=== PATIENT | male | born 1990 | race Caucasian/White ===

== ENCOUNTER 2022-05-24 03:19 | Emergency (ER) | payer BC, SELFPAY ==
[2022-05-24] VITALS (8 sets, daily range): BP systolic 126–146; BP diastolic 76–80; PULSE 88–98; RESP 18–22; O2SAT 92–100; BMI 36.3
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
--- NOTE | 2022-05-24 03:49 | PC.NURSE ---
patient refusing all medications, states i just want warm blankets'.
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
--- NOTE | 2022-05-24 04:22 | PC.NURSE ---
while in ct with patient, patient now opening eyes to tactile stimulus, 3mm reactive, following commands, groaning noises instead of speaking when asked questions by staff.
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
--- NOTE | 2022-05-24 04:33 | PC.NURSE ---
dr bethea notified of patient neuro status changes
[2022-05-24 04:50] LABS: Basophils # 0.1 10^3/uL (0.0-0.1); Basophils % 0.3 %; Eosinophils # 0.1 10^3/uL (0.0-0.8); Eosinophils % 0.3 %; Hematocrit 45.2 % (42.0-52.0); Hemoglobin 15.1 g/dL (11.7-16.6); Lymphocytes % 10.5 %; Mean Corpuscular HGB Conc 33.4 g/dL (30.0-36.0); Mean Corpuscular Hemoglobin 29.4 pg (28.0-34.0); Mean Corpuscular Volume 88.1 fl (80-94); Mean Platelet Volume 10.7 fL (7.4-10.4); Monocytes # 0.7 10^3/uL (0.2-0.9); Monocytes % 3.8 %; Neutrophils # 16.16 10^3/uL (1.8-7.7); Neutrophils % 84.4 %; Nucleated Red Blood Cells % 0 %; Platelet Count 304 10^3/cmm (130-400); Red Blood Count 5.13 10^6/uL (4.1-5.3); Red Cell Distribution Width 12.9 % (12.1-15.1); White Blood Count 19.1 10^3/uL (4.0-10.0)
--- NOTE | 2022-05-24 05:00 | ECG_ITS ---
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 Measurements Intervals [place] Rate: 91 P: 48 MO: 168 QRS: 45 QRSD: 116 T: 15 QT: 350 QTc: 431 Interpretive Statements SINUS RHYTHM INCOMPLETE RIGHT BUNDLE BRANCH BLOCK [90+ ms QRS DURATION, TERMINAL R IN V1/V2, 40+ ms S IN I/aVL/V4/V5/V6] No previous ECG available for comparison Electronically Signed On 05-24-2022 13:03:52 CDT by Kathy Montana M.D. [email or web address] Wire [email or web address] [email or web address]/[id number].pd f
[2022-05-24 05:02] LABS: Alanine Aminotransferase 94 U/L (0-41); Albumin Level 4.7 g/dL (3.5-5.2); Alcohol Level 197 mg/dL (0-10); Alkaline Phosphatase 72 U/L (40-130); Anion Gap 16.9 (5-19); Aspartate Amino Transferase 64 U/L (0-40); Blood Urea Nitrogen 13 mg/dL (6-20); Calcium 8.5 mg/dL (8.5-10.5); Carbon Dioxide 24 mmol/L (22-29); Chloride 106 mmol/L (98-107); Globulin 2.6 g/dL (1.3-4.6); Glomerular Filtration Rate 77.6 mL/min (90-130); Glucose 128 mg/dL (65-115); Osmolality Calculated 298 mOsm/kg (285-295); Potassium 3.9 mmol/L (3.5-5.1); Sodium 143 mmol/L (136-145); Total Bilirubin 0.4 mg/dL (0.15-1.2); Total Protein 7.3 g/dL (6.6-8.7)
[2022-05-24] MEDS: sodium chloride 0.9% 1,000 ML 999 ML IV (05:04)
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
== END 2022-05-24 06:05 | disposition home or self-care (01) ==
PROVIDERS: Emergency Provider Emergency Medicine
DX: S06.0X9A Concussion with loss of consciousness of unspecified duration, initial encounter (principal); F10.129 Alcohol abuse with intoxication, unspecified; Y90.6 Blood alcohol level of 120-199 mg/100 ml; S01.312A Laceration without foreign body of left ear, initial encounter; V86.99XA Unspecified occupant of other special all-terrain or other off-road motor vehicle injured in nontraffic accident, initial encounter
CPT/HCPCS: 12013; 70450; 71250; 72125; 74176; 80053; 80307; 85025; 93005; 99285; J7030